=== PATIENT | male | born 1930 | race Caucasian/White ===

== ENCOUNTER 2017-03-07 15:41 | Emergency (ER) | payer MEDICARE ==
[~2017-03-07] VITALS: Ht 167.6 cm; Wt 74.8 kg
[~2017-03-07 15:41] MED LIST: ASPI81EC PO; ATOR10 PO; ATOR20 PO; Antivert25 MG PO; CLOP75 PO; COUMADIN; DICL75ER PO; LISI5 PO; METO100ER PO; METO50ER; METO50ER PO; PRED10 PO; PRED20 PO; TAMS.4ER PO; TERA5; TERA5 PO; WARF5 PO; Zantac150 MG PO
== END 2017-03-07 16:19 | disposition home or self-care (01) ==
LOC: ER 15:41
DX: R79.1 Abnormal coagulation profile (principal); Z79.01 Long term (current) use of anticoagulants; Z79.899 Other long term (current) drug therapy; I10 Essential (primary) hypertension; I48.91 Unspecified atrial fibrillation
CPT/HCPCS: 99282

== ENCOUNTER → 2017-08-02 | Outpatient (CLI) | payer MEDICARE | END | disposition home or self-care (01) | LOC: LAB SHORT 07:26 → PLD 07:26 → EDSTATUS 09:11 | DX: C44.41 Basal cell carcinoma of skin of scalp and neck (principal); L57.8 Other skin changes due to chronic exposure to nonionizing radiation | CPT/HCPCS: 88305 ==